=== PATIENT | male | born 1990 | race American Indian/Alaskan Native ===

== ENCOUNTER 2017-12-11 20:16 | Observation (INO) | payer BC, OTHER ==
[2017-12-11 20:16] VITALS: BMI 31.0
[2017-12-11] MEDS ORDERED: Sodium Chloride 0.9% 1,000 ML IV STA (20:36)
--- NOTE | 2017-12-11 20:41 | ED PDOC ---
"Arrival/HPI - General Chief Complaint: Abdominal Pain Time Seen by Provider: 12/11/17 20:19 Historian: Patient - History of Present Illness Narrative History of Present Illness (Text): 12/11/17 20:38 27 y/o male, pmh including appendicitis, nkda, c/o generalized abdominal pain x 2 hours with nausea/vomiting. Pt. stated that he had couple slices of pizza about 2 hours ago, quickly he has epigastric abdominal pain which radiating to the entire abdomen, took motrin and the pain increased, took magnesium milk as he think he was constipated as this instantly resulted 2 episodes of regular bowel movement, still having pain in the ER, no fever or chills, no coughing, no night sweat, no rash, no numbness or tingling, no other medical or psychological complaints. Past Medical History - Provider Review Nursing Documentation Reviewed: Yes - Past Medical History Past Medical History: No Previous - Psychiatric Hx Psychophysiologic Disorder: No Hx Substance Use: No - Past Surgical History Past Surgical History: No Previous - Surgical History Other/Comment: FINGER - Suicidal Assessment Feels Threatened In Home Enviroment: No Family/Social History - Physician Review Nursing Documentation Reviewed: Yes Family/Social History: Unknown Family HX Smoking Status: Never Smoked Hx Alcohol Use: No Hx Substance Use: No Hx Substance Use Treatment: No Allergies/Home Meds Allergies/Adverse Reactions: Allergies No Known Allergies Allergy (Verified 12/11/17 20:24) Review of Systems - Review of Systems Constitutional: absent: Fatigue, Fevers Eyes: absent: Vision Changes ENT: absent: Hearing Changes Respiratory: absent: SOB, Cough Cardiovascular: absent: Chest Pain Gastrointestinal: Abdominal Pain, Nausea, Vomiting. absent: Diarrhea Skin: absent: Rash, Pruritis Neurological: absent: Headache, Dizziness Psychiatric: absent: Anxiety, Depression, Suicidal Ideation Physical Exam Vital Signs Reviewed: Yes Vital Signs Temp Pulse Resp BP Pulse Ox 12/12/17 00:44 52 L 14 101/49 L 95 12/11/17 22:47 73 17 135/68 97 12/11/17 20:25 97.8 F 84 18 119/75 100 Temperature: Afebrile Blood Pressure: Normal Pulse: Regular Respiratory Rate: Normal Appearance: Positive for: Uncomfortable Pain Distress: Severe Mental Status: Positive for: Alert and Oriented X 3 - Systems Exam Head: Present: Atraumatic, Normocephalic Pupils: Present: PERRL Extroacular Muscles: Present: EOMI Conjunctiva: Present: Normal Ears: Present: NORMAL TM, Normal Canal. No: Erythema Mouth: Present: Moist Mucous Membranes Neck: Present: Normal Range of Motion Respiratory/Chest: Present: Clear to Auscultation, Good Air Exchange. No: Respiratory Distress, Accessory Muscle Use, Wheezes, Decreased Breath Sounds, Rales, Retracting, Rhonchi, Tachypneic, Tender to Palpation Cardiovascular: Present: Regular Rate and Rhythm, Normal S1, S2. No: Murmurs Abdomen: Present: Tenderness (epigastric and periumbilical), Normal Bowel Sounds. No: Distention, Peritoneal Signs, Rebound, Guarding, McBurney's Point Tender, Rovsing's Sign Present Back: Present: Normal Inspection. No: CVA Tenderness Upper Extremity: Present: Normal Inspection. No: Cyanosis, Edema Lower Extremity: Present: Normal Inspection. No: Edema Neurological: Present: GCS=15, Speech Normal, Motor Func Grossly Intact, Gait Normal, Memory Normal Skin: Present: Warm, Dry, Normal Color. No: Rashes Psychiatric: Present: Alert, Oriented x 3, Anxious Medical Decision Making ED Course and Treatment: 12/11/17 20:41 -labs/ua/lipase/pt/ptt -CT abdomen and pelvis -Gallbladder sonogram -IVF/zofran/pepcid -Observe and reassess 12/11/17 22:16 -Morphine 4mg IV ordered for the pain. 12/11/17 23:43 -Labs show no acute findings except wbc 11.1 (afebrile, likely pain induced) -UA show no UTI. -Gall bladder show no acute findings. -CT abdomen and pelvis show Periportal edema, nonspecific. Clinical correlation is needed. Apparent gallbladder wall thickening, not appreciated on ultrasound. Clinical correlation is needed. -Chest xray show no active disease -Abdominal pain persist, dilaudid 1mg IV ordered, still in persistent pain and screaming, pacing around, will admit for intractable abdominal pain with surgical consult and overnight observation. Differential including cholecystitis vs. gastritis vs. gastric ulcer vs. gastroenteritis. 12/11/17 23:52 -I discussed the case with Dr. Kellogg, medicine control director, discussed about the case/labs/radiology results, agreed to admit to his service with Dr. Schmidt for surgical consult as routine. -I discussed with Dr. Brown, discussed about the case/labs/radiology result, he will put in the admission. -residential sales consultant paged and notified. 12/11/17 23:59 -I spoke to the rn neurosurgical Dr. Karma Villavicencio, discussed about the case/ labs/radiology result and patient's pain level in the ER, will come to evaluate the patient. Reassessment Condition: Re-examined, Unchanged - Lab Interpretations Lab Results: 12/11/17 20:10 12/11/17 20:10 Lab Results 12/11/17 22:30: Urine Color Dark yellow, Urine Appearance Clear, Urine pH 5.5, Ur Specific [place] 1.020, Urine Protein Trace H, Urine Glucose (UA) Negative, Urine Ketones 15 H, Urine Blood Trace-intact H, Urine Nitrate Negative, Urine Bilirubin Negative, Urine Urobilinogen 0.2, Ur Leukocyte Esterase Negative, Urine RBC 2 - 5, Urine WBC 0 - 2, Ur Epithelial Cells None, Amorphous Sediment Few, Urine Bacteria Many, Urine Other Uyeast 12/11/17 21:37: Blood Type Confirm O POSITIVE 12/11/17 21:00: Blood Type O POSITIVE, Antibody Screen Negative, BBK History Checked No verified bt 12/11/17 20:10: Sodium 144, Potassium 3.6, Chloride 105, Carbon Dioxide 25, Anion Gap 18, BUN 15, Creatinine 1.4, Est GFR ( Amer) > 60, Est GFR (Non- Af Amer) > 60, Random Glucose 164 H, Calcium 9.8, Total Bilirubin 0.9, AST 59, ALT 48, Alkaline Phosphatase 67, Total Protein 7.7, Albumin 4.4, Globulin 3.3, Albumin/Globulin Ratio 1.3, Lipase 132 12/11/17 20:10: PT 13.3 H, INR 1.16 H, APTT 25.3 12/11/17 20:10: WBC 11.1 H, RBC 4.54, Hgb 13.8 L, Hct 39.8 L, MCV 87.7, MCH 30.4 , MCHC 34.7, RDW 12.6, Plt Count 204, MPV 9.3, Gran % 60.3, Lymph % (Auto) 33.5 , [place] % (Auto) 6.0, Eos % (Auto) 0.1 L, Baso % (Auto) 0.1, Gran # 6.68 H, Lymph # (Auto) 3.7 H, [place] # (Auto) 0.7 H, Eos # (Auto) 0.0, Baso # (Auto) 0.01 - RAD Interpretation Radiology Orders: 12/11/17 20:35 ABD & PELVIS IV CONTRAST ONLY [CT] Stat GALL BLADDER [US] Stat 12/11/17 21:16 CHEST ONE VIEW [RAD] Stat -Chest xray: no active disease -Gallbladder sonogram: COMPARISON: No relevant prior studies available. FINDINGS: Liver: Normal echogenicity. No mass. No intrahepatic bile duct dilatation. Gallbladder: Contracted. No gallstones. No wall thickening. No pericholecystic fluid. No sonographic Jimenez's sign. Common bile duct: No dilatation. No stones. Pancreas: Obscured by overlying bowel gas. Right kidney: Normal echogenicity. No hydronephrosis. IMPRESSION: 1. No acute findings. Thank you for allowing us to participate in the care of your patient. Dictated and Authenticated by: Blair Zultea MD 12/11/2017 10:10 PM Eastern Time (US & Gen) -CT abdomen and pelvis: FINDINGS: Lower thorax: No acute findings. ABDOMEN: Liver: Mild periportal edema. Gallbladder and bile ducts: Apparent mild gallbladder wall thickening. No calcified gallstones. No significant ductal dilation. Pancreas: No ductal dilation. No mass. Spleen: No splenomegaly. Adrenals: No mass. Kidneys and ureters: No mass. No hydronephrosis. Stomach and bowel: Segmental areas of probable underdistention of LEFT colon. No definite mural thickening. No obstruction. Appendix: Normal caliber. No inflammation. DORITA ROA | Final Radiology Report CONFIDENTIALITY STATEMENT This report is intended only for use by the referring physician, and only in accordance with law. If you received this in error, call [phone]. Page 2 of 2 PELVIS: Bladder: Small focus of fat density along anterior bladder wall, doubtful significance. Reproductive: Unremarkable as visualized. ABDOMEN and PELVIS: Intraperitoneal space: No significant fluid collection. No free air. Bones/joints: Mild curvature of spine. No acute fracture. Soft tissues: Unremarkable. 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 Lymph nodes: No pathologically enlarged lymph nodes. IMPRESSION: 1. Periportal edema, nonspecific. Clinical correlation is needed. 2. Apparent gallbladder wall thickening, not appreciated on ultrasound. Clinical correlation is needed. 3. Incidental/non-acute findings are described above. Thank you for allowing us to participate in the care of your patient. Dictated and Authenticated by: Blair Zuleta MD 12/11/2017 10:42 PM Eastern Time (US & Gen) Manager Discovery: Radiologist - Medication Orders Current Medication Orders: Discontinued Medications Acetaminophen (Tylenol 325mg Tab) 650 mg PO Q4 PRN PRN Reason: Fever >100.4 F Enoxaparin Sodium (Lovenox) 30 mg SC Q12H ABDON PRN Reason: Protocol Last Admin: 12/13/17 00:44 Dose: 30 mg Subcutaneous Administrations Document 12/13/17 00:44 MJ (Rec: 12/13/17 00:45 MJ [facility] [id number]) Injection Site MAR Injection Site Right Abdomen Charges for Administration # of Subcutaneous Administrations 1 Famotidine (Pepcid) 20 mg IVP STAT STA Stop: 12/11/17 20:36 Last Admin: 12/11/17 20:52 Dose: 20 mg IVP Administration Document 12/11/17 20:52 CNR (Rec: 12/11/17 20:52 CNR [facility] [id number]) Charges for Administration # of IVP Administrations 1 Fluconazole (Diflucan) 150 mg PO STAT STA PRN Reason: Protocol Stop: 12/11/17 23:42 Last Admin: 12/12/17 00:13 Dose: 150 mg Hydromorphone HCl (Dilaudid) 1 mg IVP STAT STA Stop: 12/11/17 23:05 Last Admin: 12/11/17 23:21 Dose: 1 mg MAR Pain Assessment Document 12/11/17 23:21 CNR (Rec: 12/11/17 23:22 CNR [facility] [id number]) Pain Reassessment Is this a pain reassessment? Yes IVP Administration Document 12/11/17 23:21 CNR (Rec: 12/11/17 23:22 CNR [facility] [id number]) Charges for Administration # of IVP Administrations 1 Sodium Chloride (Sodium Chloride 0.9%) 1,000 mls @ 999 mls/hr IV .Q1H1M STA Stop: 12/11/17 21:36 Last Admin: 12/11/17 20:50 Dose: 999 mls/hr eMAR Start Stop Document 12/11/17 20:50 CNR (Rec: 12/11/17 20:52 CNR [facility] [id number]) Intravenous Solution Start Date 12/11/17 Start Time 20:52 Lactated Ringer's (Lactated Ringer's) 1,000 mls @ 125 mls/hr IV .Q8H ABDON Stop: 12/14/17 01:01 Last Admin: 12/12/17 01:08 Dose: 125 mls/hr eMAR Start Stop Document 12/12/17 01:08 CNR (Rec: 12/12/17 01:08 CNR [facility] [id number]) Intravenous Solution Start Date 12/12/17 Start Time 01:08 Morphine Sulfate (Morphine) 4 mg IVP STAT STA Stop: 12/11/17 22:28 Last Admin: 12/11/17 22:41 Dose: 4 mg IVP Administration Document 12/11/17 22:41 CNR (Rec: 12/11/17 22:43 CNR [facility] [id number]) Charges for Administration # of IVP Administrations 1 Morphine Sulfate (Morphine) 2 mg IVP Q4H PRN PRN Reason: Pain, severe (8-10) Morphine Sulfate (Morphine) 2 mg IVP Q4H PRN PRN Reason: Pain, severe (8-10) Nitrofurantoin Macrocrystals (Macrobid) 100 mg PO Q12 ABDON Last Admin: 12/13/17 09:00 Dose: 100 mg Ondansetron HCl (Zofran Inj) 4 mg IVP STAT STA Stop: 12/11/17 20:36 Last Admin: 12/11/17 20:52 Dose: 4 mg IVP Administration Document 12/11/17 20:52 CNR (Rec: 12/11/17 20:52 CNR [facility] [id number]) Charges for Administration # of IVP Administrations 1 Ondansetron HCl (Zofran Inj) 4 mg IVP Q6H PRN PRN Reason: Nausea/Vomiting Pantoprazole Sodium (Protonix Inj) 40 mg IVP Q12 [facility] Last Admin: 12/12/17 21:43 Dose: 40 mg IVP Administration Document 12/12/17 21:43 MJ (Rec: 12/12/17 21:43 MJ [facility] [id number]) Charges for Administration # of IVP Administrations 1 Pantoprazole Sodium (Protonix Ec Tab) 40 mg PO Q12 [facility] [place] / OUTBOUND SUPERVISOR / Resident Statement MD/DO has reviewed & agrees with the documentation as recorded. Disposition/Present on Arrival - Present on Arrival Any Indicators Present on Arrival: No History of DVT/PE: No History of Uncontrolled Diabetes: No Urinary Catheter: No History of Decub. Ulcer: No History Surgical Site Infection Following: None - Disposition Have Diagnosis and Disposition been Completed?: Yes Diagnosis: Intractable abdominal pain, Thickening of wall of gallbladder Disposition: HOSPITALIZED Disposition Time: 23:05 Patient Plan: Admission, Observation Condition: FAIR"
[2017-12-11 20:53] LABS: BASO # 0.01 K/mm3 (0.0-2.0); BASO % 0.1 % (0.0-3.0); EOS % 0.1 % (1.5-5.0); GRAN # 6.68 (1.4-6.5); GRAN % 60.3 % (50.0-68.0); HEMOGLOBIN 13.8 g/dL (14.0-18.0); LYMPH # 3.7 (1.2-3.4); LYMPH % 33.5 % (22.0-35.0); MEAN CELL VOLUME 87.7 fl (80.0-105.0); MEAN CORPUSCULAR HEMOGLOBIN 30.4 pg (25.0-35.0); MEAN CORPUSCULAR HGB CONC 34.7 g/dl (31.0-37.0); MEAN PLATELET VOLUME 9.3 fl (7.0-11.0); MONO # 0.7 (0.1-0.6); RBC 4.54 10^6/uL (3.5-6.1); RED CELL DISTRIBUTION WIDTH 12.6 % (11.5-14.5); WHITE BLOOD COUNT 11.1 10^3/ul (4.5-11.0)
[2017-12-11 21:02] LABS: ALB/GLOB RATIO 1.3 (1.1-1.8); ALBUMIN 4.4 g/dL (3.0-4.8); ALT/SGPT 48 U/L (7-56); AST/SGOT 59 U/L (17-59); BLOOD UREA NITROGEN 15 mg/dL (7-21); CALCIUM 9.8 mg/dL (8.4-10.5); GFR AFRICAN-AMERICAN > 60; GFR NON-AFRICAN AMERICAN > 60; LIPASE 132 U/L (23-300)
[2017-12-11 21:24] LABS: INR 1.16 (0.93-1.08); PARTIAL THROMBOPLASTIN TIME 25.3 Seconds (25.1-36.5); PROTHROMBIN TIME 13.3 SECONDS (9.4-12.5)
[2017-12-11] MEDS ORDERED: Iohexol 350 MG/100 ML VIAL ONE (22:08)
--- NOTE | 2017-12-11 22:10 | US ---
EXAM: US Abdomen Limited, Right Upper Quadrant CLINICAL HISTORY: 27 years old, male; Pain; Abdominal pain; Generalized; Additional info: R/O cholecystitis TECHNIQUE: Real-time ultrasound of the right upper quadrant with image documentation. COMPARISON: No relevant prior studies available. FINDINGS: Liver: Normal echogenicity. No mass. No intrahepatic bile duct dilatation. Gallbladder: Contracted. No gallstones. No wall thickening. No pericholecystic fluid. No sonographic Jimenez's sign. Common bile duct: No dilatation. No stones. Pancreas: Obscured by overlying bowel gas. Right kidney: Normal echogenicity. No hydronephrosis. IMPRESSION: 1.No acute findings.
[2017-12-11] MEDS ORDERED: Morphine 4 mg/ml ISec IVP STA (22:15)
[2017-12-11] MEDS ORDERED: Morphine 5 MG/ML SYRINGE IVP STA (22:27)
--- NOTE | 2017-12-11 22:42 | CT ---
EXAM: CT Abdomen and Pelvis With Intravenous Contrast CLINICAL HISTORY: 27 years old, male; Pain; Abdominal pain; Acute; Additional info: Generalized abominal pain x 2 hours TECHNIQUE: Axial computed tomography images of the abdomen and pelvis with intravenous contrast. All CT scans at this facility use one or more dose reduction techniques, viz.: automated exposure control; ma/kV adjustment per patient size (including targeted exams where dose is matched to indication; i.e. head); or iterative reconstruction technique. Coronal and sagittal reformatted images were created and reviewed. CONTRAST: 100 mL of OMNI 350 administered intravenously. COMPARISON: US - GALL BLADDER 2017-12-11 21:49 FINDINGS: Lower thorax: No acute findings. ABDOMEN: Liver: Mild periportal edema. Gallbladder and bile ducts: Apparent mild gallbladder wall thickening. No calcified gallstones. No significant ductal dilation. Pancreas: No ductal dilation. No mass. Spleen: No splenomegaly. Adrenals: No mass. Kidneys and ureters: No mass. No hydronephrosis. Stomach and bowel: Segmental areas of probable underdistention of LEFT colon. No definite mural thickening. No obstruction. Appendix: Normal caliber. No inflammation. PELVIS: Bladder: Small focus of fat density along anterior bladder wall, doubtful significance. Reproductive: Unremarkable as visualized. ABDOMEN and PELVIS: Intraperitoneal space: No significant fluid collection. No free air. Bones/joints: Mild curvature of spine. No acute fracture. Soft tissues: Unremarkable. 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 Lymph nodes: No pathologically enlarged lymph nodes. IMPRESSION: 1. Periportal edema, nonspecific. Clinical correlation is needed. 2. Apparent gallbladder wall thickening, not appreciated on ultrasound. Clinical correlation is needed. 3. Incidental/non-acute findings are described above.
[2017-12-11 22:51] LABS: PH,URINE 5.5 (4.7-8.0); URINE BILIRUBIN NEGATIVE (NEGATIVE); URINE BLOOD TRACE-INTACT (NEGATIVE); URINE GLUCOSE (UA) NEGATIVE (NEGATIVE); URINE LEUKOCYTE ESTERASE NEGATIVE Leu/uL (NEGATIVE); URINE NITRATE NEGATIVE (NEGATIVE); URINE PROTEIN TRACE mg/dL (<30 mg/dL); URINE UROBILINOGEN 0.2 E.U./dL (<1 E.U./dL)
[2017-12-11 22:53] LABS: URINE APPEARANCE CLEAR (CLEAR); URINE COLOR DARK YELLOW (YELLOW)
[2017-12-11 23:06] LABS: URINE AMORPHOUS SEDIMENT FEW; URINE BACTERIA MANY (NEG); URINE WBC 0 - 2 /hpf (0-6)
[2017-12-12] MEDS ORDERED: Sodium Chloride 0.9% 1,000 ML IV SCH
[2017-12-12] MEDS ORDERED: Morphine 5 MG/ML SYRINGE IVP PRN (00:50)
--- NOTE | 2017-12-12 00:59 | CP.PCM.CON ---
History of Present Illness - History of Present Illness History of Present Illness: Patient is a 27 M with no significant PMH of PSH who presented to [facility] ER after having severe abdominal pain a few hours in duration. Patient stated pain began around 7PM after eating pizza. Pain was epigastric in nature and then spread in a la posta around his abdomen. Patient reported nausea associated with pain but no vomiting. Had a regular solid BM the day of the onset but had 2 episode of diarrhea just prior to the pain. Patient denies any prior occurrence, difficulty urinating, hematuria, dysuria, melena, hematochezia, pain radiating to his back, CP, SOB, or any other symptoms. Denies pain during examination after receiving 1 mg of dilaudid and pepcid. Review of Systems - Review of Systems All systems: reviewed and no additional remarkable complaints except - Constitutional Constitutional: Excessive Sweating. absent: Chills, Fever - Cardiovascular Cardiovascular: As Per HPI - Respiratory Respiratory: As Per HPI. absent: Cough, Dyspnea - Gastrointestinal Gastrointestinal: As Per HPI - Genitourinary Genitourinary: As Per HPI - Musculoskeletal Musculoskeletal: As Per HPI - Neurological Neurological: As Per HPI Past Patient History - Past Medical History & Family History Past Medical History?: Yes - Past Social History Smoking Status: Never Smoked Alcohol: Occasional Drugs: Denies - PSYCHIATRIC Hx Psychophysiologic Disorder: No Hx Substance Use: No - SURGICAL HISTORY Other/Comment: FINGER Meds Allergies/Adverse Reactions: Allergies Allergy/AdvReac Type Severity Reaction Status Date / Time No Known Allergies Allergy Verified 12/11/17 20:24 - Medications Medications: Current Medications Acetaminophen (Tylenol 325mg Tab) 650 mg PO Q4 PRN PRN Reason: Fever >100.4 F Enoxaparin Sodium (Lovenox) 30 mg SC Q12H ABDON PRN Reason: Protocol Lactated Ringer's (Lactated Ringer's) 1,000 mls @ 125 mls/hr IV .Q8H [facility] Stop: 12/14/17 01:01 Morphine Sulfate (Morphine) 2 mg IVP Q4H PRN PRN Reason: Pain, severe (8-10) Ondansetron HCl (Zofran Inj) 4 mg IVP Q6H PRN PRN Reason: Nausea/Vomiting Physical Exam - Constitutional Appears: Well, Non-toxic, No Acute Distress - Eye Exam Eye Exam: EOMI, Normal appearance - ENT Exam ENT Exam: Mucous Membranes Moist, Normal Oropharynx - Respiratory Exam Respiratory Exam: NORMAL BREATHING PATTERN. absent: Accessory Muscle Use, Respiratory Distress - Cardiovascular Exam Cardiovascular Exam: RRR - GI/Abdominal Exam GI & Abdominal Exam: Soft, Tenderness (mild LUQ tenderness). absent: Distended , Rebound Additional comments: negative morse's sign, no tenderness at McBurney's point, negative Rovsing's sign - Extremities Exam Extremities exam: Positive for: pedal pulses present. Negative for: calf tenderness, pedal edema - Back Exam Back exam: absent: CVA tenderness (L), CVA tenderness (R) - Neurological Exam Neurological exam: Altered (lethargic D/T pain medication), Oriented x3 - Psychiatric Exam Psychiatric exam: Normal Affect, Normal Mood - Skin Skin Exam: Normal Color, Warm Additional comments: sweating Results - Vital Signs Recent Vital Signs: Last Vital Signs Temp 97.8 F 12/11/17 20:25 Pulse 52 L 12/12/17 00:44 Resp 14 12/12/17 00:44 BP 101/49 L 12/12/17 00:44 Pulse Ox 95 12/12/17 00:44 - Labs Result Diagrams: 12/11/17 20:10 12/11/17 20:10 Labs: Laboratory Results - last 24 hr 12/11/17 12/11/17 12/11/17 20:10 20:10 20:10 WBC 11.1 H RBC 4.54 Hgb 13.8 L Hct 39.8 L MCV 87.7 MCH 30.4 MCHC 34.7 RDW 12.6 Plt Count 204 MPV 9.3 Gran % 60.3 Lymph % (Auto) 33.5 [place] % (Auto) 6.0 Eos % (Auto) 0.1 L Baso % (Auto) 0.1 Gran # 6.68 H Lymph # (Auto) 3.7 H [place] # (Auto) 0.7 H Eos # (Auto) 0.0 Baso # (Auto) 0.01 PT 13.3 H INR 1.16 H APTT 25.3 Sodium 144 Potassium 3.6 Chloride 105 Carbon Dioxide 25 Anion Gap 18 BUN 15 Creatinine 1.4 Est GFR ( Amer) > 60 Est GFR (Non-Af Amer) > 60 Random Glucose 164 H Calcium 9.8 Total Bilirubin 0.9 AST 59 ALT 48 Alkaline Phosphatase 67 Total Protein 7.7 Albumin 4.4 Globulin 3.3 Albumin/Globulin Ratio 1.3 Lipase 132 Urine Color Urine Appearance Urine pH Ur Specific [place] Urine Protein Urine Glucose (UA) Urine Ketones Urine Blood Urine Nitrate Urine Bilirubin Urine Urobilinogen Ur Leukocyte Esterase Urine RBC Urine WBC Ur Epithelial Cells Amorphous Sediment Urine Bacteria Urine Other Blood Type Blood Type Confirm Antibody Screen BBK History Checked 12/11/17 12/11/17 12/11/17 21:00 21:37 22:30 WBC RBC Hgb Hct MCV MCH MCHC RDW Plt Count MPV Gran % Lymph % (Auto) [place] % (Auto) Eos % (Auto) Baso % (Auto) Gran # Lymph # (Auto) [place] # (Auto) Eos # (Auto) Baso # (Auto) PT INR APTT Sodium Potassium Chloride Carbon Dioxide Anion Gap BUN Creatinine Est GFR ( Amer) Est GFR (Non-Af Amer) Random Glucose Calcium Total Bilirubin AST ALT Alkaline Phosphatase Total Protein Albumin Globulin Albumin/Globulin Ratio Lipase Urine Color Dark yellow Urine Appearance Clear Urine pH 5.5 Ur Specific [place] 1.020 Urine Protein Trace H Urine Glucose (UA) Negative Urine Ketones 15 H Urine Blood Trace-intact H Urine Nitrate Negative Urine Bilirubin Negative Urine Urobilinogen 0.2 Ur Leukocyte Esterase Negative Urine RBC 2 - 5 Urine WBC 0 - 2 Ur Epithelial Cells None Amorphous Sediment Few Urine Bacteria Many Urine Other Uyeast Blood Type O POSITIVE Blood Type Confirm O POSITIVE Antibody Screen Negative BBK History Checked No verified bt - Imaging and Cardiology CT scan - abdomen Status: Image reviewed by me, Report reviewed by me Additional comment: contracted gallbladder, possible inflammation of the left transverse colon, appendix normal US - abdomen Status: Image reviewed by me, Report reviewed by me Additional comment: no wall thickening, no pericholecystic fluid, no stones, cbd WNL Assessment & Plan - Assessment and Plan (Free Text) Assessment: 27M complaining of diffuse abdominal pain worst in the epigastrium: R/U cholecystitis vs. gastroenteritis Plan: Re-examine abdominal exam in the morning AM CBC, CMP NPO IVF PRN pain and nausea medication Protonix No indication for surgical intervention at this time Will discuss with Dr. Schmidt, further recs per him Karma Villavicencio, PGY2
[2017-12-12] MEDS ORDERED: Lactated Ringer's 1,000 ML IV SCH (01:00)
[2017-12-12] MEDS: Enoxaparin 30 mg Syringe SC SCH ×2 (01:54→12:44)
[2017-12-12 07:34] LABS: BASO # 0.01 K/mm3 (0.0-2.0); BASO % 0.1 % (0.0-3.0); EOS % 0.1 % (1.5-5.0); GRAN # 4.73 (1.4-6.5); GRAN % 63.3 % (50.0-68.0); HEMOGLOBIN 13.1 g/dL (14.0-18.0); LYMPH # 2.4 (1.2-3.4); LYMPH % 32.4 % (22.0-35.0); MEAN CELL VOLUME 88.9 fl (80.0-105.0); MEAN CORPUSCULAR HEMOGLOBIN 30.4 pg (25.0-35.0); MEAN CORPUSCULAR HGB CONC 34.2 g/dl (31.0-37.0); MEAN PLATELET VOLUME 9.4 fl (7.0-11.0); MONO # 0.3 (0.1-0.6); MONO % 4.1 % (1.0-6.0); RBC 4.31 10^6/uL (3.5-6.1); RED CELL DISTRIBUTION WIDTH 12.8 % (11.5-14.5); WHITE BLOOD COUNT 7.5 10^3/ul (4.5-11.0)
[2017-12-12 07:46] LABS: ALB/GLOB RATIO 1.2 (1.1-1.8); ALT/SGPT 149 U/L (7-56); AST/SGOT 141 U/L (17-59); BLOOD UREA NITROGEN 12 mg/dL (7-21); CALCIUM 9.5 mg/dL (8.4-10.5); GFR AFRICAN-AMERICAN > 60; GFR NON-AFRICAN AMERICAN > 60; MAGNESIUM 2.5 mg/dL (1.7-2.2)
[2017-12-12 07:58] VITALS: RESP 20
--- NOTE | 2017-12-12 09:10 | CP.PCM.PN ---
Subjective - Date & Time of Evaluation Date of Evaluation: 12/12/17 Time of Evaluation: 09:07 - Subjective Subjective: GENERAL SURGERY CONSULT PROGRESS NOTE FOR DR. SHEIKH. Patient has been seen and examined. No overnight events reported. Denies any fevers, chills, nausea, vomiting, or abdominal pain. Objective - Vital Signs/Intake and Output Vital Signs (last 24 hours): Temp Pulse Resp BP Pulse Ox 98.1 F 51 L 20 107/57 L 97 12/12/17 06:00 12/12/17 06:00 12/12/17 06:00 12/12/17 06:00 12/12/17 06:00 - Medications Medications: Current Medications Acetaminophen (Tylenol 325mg Tab) 650 mg PO Q4 PRN PRN Reason: Fever >100.4 F Enoxaparin Sodium (Lovenox) 30 mg SC Q12H ABDON PRN Reason: Protocol Last Admin: 12/12/17 01:54 Dose: 30 mg Lactated Ringer's (Lactated Ringer's) 1,000 mls @ 125 mls/hr IV .Q8H [facility] Stop: 12/14/17 01:01 Last Admin: 12/12/17 01:08 Dose: 125 mls/hr Morphine Sulfate (Morphine) 2 mg IVP Q4H PRN PRN Reason: Pain, severe (8-10) Ondansetron HCl (Zofran Inj) 4 mg IVP Q6H PRN PRN Reason: Nausea/Vomiting Pantoprazole Sodium (Protonix Inj) 40 mg IVP Q12 ABDON - Labs Labs: 12/12/17 06:40 12/12/17 06:40 PT 13.3 SECONDS (9.4-12.5) H 12/11/17 20:10 INR 1.16 (0.93-1.08) H 12/11/17 20:10 APTT 25.3 Seconds (25.1-36.5) 12/11/17 20:10 - Constitutional Appears: Well, Non-toxic, No Acute Distress - Head Exam Head Exam: ATRAUMATIC, NORMAL INSPECTION, NORMOCEPHALIC - Eye Exam Eye Exam: EOMI, Normal appearance - ENT Exam ENT Exam: Mucous Membranes Moist - Respiratory Exam Respiratory Exam: NORMAL BREATHING PATTERN. absent: Accessory Muscle Use - Cardiovascular Exam Cardiovascular Exam: +S1, +S2 - GI/Abdominal Exam GI & Abdominal Exam: Soft. absent: Distended, Firm, Guarding, Rigid, Tenderness , Normal Bowel Sounds, Organomegaly, Rebound Additional comments: negative morse's sign, no tenderness at McBurney's point, negative Rovsing's sign - Extremities Exam Extremities Exam: absent: Pedal Edema - Neurological Exam Neurological Exam: Alert, Awake, Oriented x3 - Psychiatric Exam Psychiatric exam: Normal Affect, Normal Mood - Skin Skin Exam: Dry, Intact, Normal Color, Warm Assessment and Plan - Assessment and Plan (Free Text) Assessment: 27M complaining of diffuse abdominal pain worst in the epigastrium: R/O cholecystitis (Unlikely) vs. gastroenteritis vs colitis. Abd/Pelvis CT - Noted Gallbladder US - No Acute Findings. Benign Abdominal Exam. VSS, Afebrile, No Leukocytosis Elevated Liver Enzymes Plan: Start Liquid Diet Advance Diet as tolerated Trend Liver Enzymes No surgical intervention warranted at this time. Please contact us with any questions are concerns. Discussed with Dr. Brayan Hernandez, PGY1
--- NOTE | 2017-12-12 09:53 | RAD ---
PROCEDURE: CHEST RADIOGRAPH, 1 VIEW HISTORY: medical clearance COMPARISON: None available. FINDINGS: LUNGS: Clear. PLEURA: No pneumothorax or pleural fluid seen. CARDIOVASCULAR: Normal. OSSEOUS STRUCTURES: No significant abnormalities. VISUALIZED UPPER ABDOMEN: Normal. OTHER FINDINGS: None. IMPRESSION: No active disease.
[2017-12-12] MEDS ORDERED: Morphine 2 mg/ml ISec IVP PRN (17:42)
[2017-12-12 19:14] LABS: HEPATITIS B SURFACE AG Negative (NEGATIVE)
[2017-12-12 19:20] LABS: HEPATITIS A IGM NEGATIVE (NEGATIVE); HEPATITIS B CORE AB NEGATIVE (NEGATIVE)
[2017-12-12 19:31] LABS: HEPATITIS C ANTIBODY NEGATIVE (NEGATIVE)
--- NOTE | 2017-12-12 22:51 | HP ---
HISTORY OF PRESENT ILLNESS: I saw him resting comfortably in bed this morning. He did not sleep well last night. He had some diarrhea this morning. He is a 27-year-old man who is having 2 hours of severe nausea, vomiting and abdominal pain after eating pizza. He had very severe abdominal pain, never had that before. He took some Motrin and milk of magnesia and came to the emergency room. He did have some bowel movements this morning which were diarrhea. He is asking for ice chips and just overall not doing well. PAST MEDICAL HISTORY: He has no previous medical history. PAST SURGICAL HISTORY: No surgical history. SOCIAL HISTORY: No smoking. No drinking. No drugs. FAMILY HISTORY: No family history. ALLERGIES: NO KNOWN DRUG ALLERGIES. MEDICATIONS: No medicines at home that he takes besides what was mentioned above [id number]. REVIEW OF SYSTEMS: No vision changes. No hearing changes. No shortness of breath. No cough. No chest pain or palpitations. He is having abdominal pain, nausea and vomiting. He had some diarrhea this morning. No skin issues, no ulcers or rashes. No headache or dizziness. No anxiety. No depression. PHYSICAL EXAMINATION: VITAL SIGNS: He has a 98.2 temperature, 60 pulse, 14 respiratory rate, 101/49 blood pressure and 96% O2 sat on room air. GENERAL: He has mild discomfort in the abdomen at this time. HEENT: Head is atraumatic and normocephalic. Alert and oriented x3. Pupils equal, round and reactive to light and accommodation. Extraocular muscles are intact. Throat is moist. NECK: Supple. HEART: Regular rate. Normal S1 and S2. LUNGS: Decreased breath sounds, clear to auscultation. No wheezes, rhonchi or rales. ABDOMEN: At this time, mild upper epigastric tenderness, but soft positive bowel sounds. Faint, but soft. No guarding. No rebound. EXTREMITIES: No edema. NEUROLOGIC: GCS is 15. Cranial nerves II through XII grossly intact. Alert and oriented x3. SKIN: Warm and dry. No apparent rashes or ulcers. LABORATORY DATA: He has a 144 sodium, potassium 4.2, BUN 12, creatinine 1.1, GFR is greater than 60, sugar is 110, calcium is 9.5, phosphorus is 4.4, magnesium 2.5. Total bilirubin is 1.1, AST is 141, ALT is 149, they went up from when he came in; alkaline phosphatase is 64, total protein is 7.2, lipase is 132. INR is 1.16. White count is down to 7.5. It was 11.1 when he came, 13.1 hemoglobin, 38.3 hematocrit, 194 platelets. IMPRESSION AND PLAN: He had a CAT scan of the abdomen and pelvis, which was periportal edema, apparent gallbladder wall thickening. Ultrasound showed no acute findings. I will increase his diet to clears. We will se how he does. I called GI to look at his liver enzymes which are elevated, but he is taking ice chips and did move his bowels with diarrhea and he does have bowel sounds and his belly his soft. We will see how he does have clear fluids. If we can do well today, possibly discharge home. I will discuss this with GI. I understand that there is no surgical intervention at this time. He is her for severe abdominal pain. Sam Kellogg DO MTDGuilherme
[2017-12-13] MEDS: Enoxaparin 30 mg Syringe SC SCH (00:44)
[2017-12-13 01:15] VITALS: O2SAT 99
[2017-12-13 07:15] LABS: HEMOGLOBIN 12.8 g/dL (14.0-18.0); MEAN CELL VOLUME 89.9 fl (80.0-105.0); MEAN CORPUSCULAR HEMOGLOBIN 30.1 pg (25.0-35.0); MEAN CORPUSCULAR HGB CONC 33.5 g/dl (31.0-37.0); MEAN PLATELET VOLUME 9.7 fl (7.0-11.0); RBC 4.25 10^6/uL (3.5-6.1); WHITE BLOOD COUNT 3.9 10^3/ul (4.5-11.0)
--- NOTE | 2017-12-13 07:20 | CP.PCM.CON ---
History of Present Illness - History of Present Illness History of Present Illness: Initial PGY4 GI Consult note Eliz is a 27M w/ no sig med hx who presented to the ER with abdominal pain. Pt states that it started insidiously after eating pizza post soccer game the night prior. He states that the pain was 10 out of 10 and located in the RUQ and epigastric area, but non-radiating. He tried taking milk of Mg, but no improvement in symptoms. He states that he had experienced a one time episode of stool BM after Milk of MG without blood or mucus. He then proceeded to the ER for further eval. Pt CT w/ IV contrast revealed mild GB walling thickening, but no stones. Abd u/s was normal; no cbd dilatation, no mass, and no acute findings. GI was consulted for elevated LFTs. He denies previous liver problems. States that he had an episode of juandice as a child. Seldom consumes alcohol. Denies herbals or wild mushroom consumption. He does admit to intermittent acetamenophen use. Denies any weight loss, fever, chills or diaphoresis. Snow BM without blood or melena. PMHx: None PSHx: finger amputation repair Social hx Denies smoking and illicit drug, drink 1-2 ties a year Family hx: denies and contributing hx Endo hx denies ROS: other than whats mentioned above, otherwise neg Past Patient History - Past Medical History & Family History Past Medical History?: Yes - Past Social History Smoking Status: Never Smoked - MUSCULOSKELETAL/RHEUMATOLOGICAL Hx Falls: No - PSYCHIATRIC Hx Psychophysiologic Disorder: No Hx Substance Use: No - SURGICAL HISTORY Other/Comment: FINGER Meds Allergies/Adverse Reactions: Allergies Allergy/AdvReac Type Severity Reaction Status Date / Time No Known Allergies Allergy Verified 12/11/17 20:24 - Medications Medications: Current Medications Acetaminophen (Tylenol 325mg Tab) 650 mg PO Q4 PRN PRN Reason: Fever >100.4 F Enoxaparin Sodium (Lovenox) 30 mg SC Q12H ABDON PRN Reason: Protocol Last Admin: 12/13/17 00:44 Dose: 30 mg Morphine Sulfate (Morphine) 2 mg IVP Q4H PRN PRN Reason: Pain, severe (8-10) Ondansetron HCl (Zofran Inj) 4 mg IVP Q6H PRN PRN Reason: Nausea/Vomiting Pantoprazole Sodium (Protonix Inj) 40 mg IVP Q12 ABDON Last Admin: 12/12/17 21:43 Dose: 40 mg Physical Exam - Constitutional Appears: Well, No Acute Distress - Head Exam Head Exam: ATRAUMATIC, NORMOCEPHALIC - Eye Exam Eye Exam: Normal appearance - ENT Exam ENT Exam: Mucous Membranes Moist - Respiratory Exam Respiratory Exam: Clear to Auscultation Bilateral, NORMAL BREATHING PATTERN. absent: Rales, Rhonchi, Wheezes, Respiratory Distress - Cardiovascular Exam Cardiovascular Exam: REGULAR RHYTHM, +S1 - GI/Abdominal Exam GI & Abdominal Exam: Normal Bowel Sounds, Soft. absent: Organomegaly, Rigid, Tenderness - Extremities Exam Extremities exam: Negative for: joint swelling, pedal edema - Neurological Exam Neurological exam: Alert, Oriented x3 - Skin Skin Exam: Dry, Intact, Normal Color, Warm Results - Vital Signs Recent Vital Signs: Last Vital Signs Temp 97.3 F L 12/13/17 00:00 Pulse 59 L 12/13/17 00:00 Resp 20 12/13/17 00:00 BP 128/81 12/13/17 00:00 Pulse Ox 99 12/13/17 00:00 - Labs Result Diagrams: 12/12/17 06:40 12/12/17 06:40 Labs: Laboratory Results - last 24 hr 12/12/17 12/12/17 12/12/17 06:40 06:40 10:06 WBC 7.5 D RBC 4.31 Hgb 13.1 L Hct 38.3 L MCV 88.9 MCH 30.4 MCHC 34.2 RDW 12.8 Plt Count 194 MPV 9.4 Gran % 63.3 Lymph % (Auto) 32.4 [place] % (Auto) 4.1 Eos % (Auto) 0.1 L Baso % (Auto) 0.1 Gran # 4.73 Lymph # (Auto) 2.4 [place] # (Auto) 0.3 Eos # (Auto) 0.0 Baso # (Auto) 0.01 Sodium 144 Potassium 4.2 Chloride 107 Carbon Dioxide 26 Anion Gap 15 BUN 12 Creatinine 1.1 Est GFR ( Amer) > 60 Est GFR (Non-Af Amer) > 60 Random Glucose 110 Calcium 9.5 Phosphorus 4.4 Magnesium 2.5 H Total Bilirubin 1.1 AST 141 H D ALT 149 H Alkaline Phosphatase 64 Total Protein 7.2 Albumin 4.0 Globulin 3.2 Albumin/Globulin Ratio 1.2 IgG Hepatitis A IgM Ab Negative Hepatitis A Ab Total Antibody pos Hep Bs Antigen Negative Hep Bs Antibody Hep B Core IgM Ab Negative Hepatitis C Antibody Negative 12/12/17 12/12/17 10:06 Unknown WBC RBC Hgb Hct MCV MCH MCHC RDW Plt Count MPV Gran % Lymph % (Auto) [place] % (Auto) Eos % (Auto) Baso % (Auto) Gran # Lymph # (Auto) [place] # (Auto) Eos # (Auto) Baso # (Auto) Sodium Potassium Chloride Carbon Dioxide Anion Gap BUN Creatinine Est GFR ( Amer) Est GFR (Non-Af Amer) Random Glucose Calcium Phosphorus Magnesium Total Bilirubin AST ALT Alkaline Phosphatase Total Protein Albumin Globulin Albumin/Globulin Ratio IgG 1262.8 Hepatitis A IgM Ab Hepatitis A Ab Total Hep Bs Antigen Hep Bs Antibody Negative Hep B Core IgM Ab Hepatitis C Antibody Assessment & Plan - Assessment and Plan (Free Text) Assessment: Eliz is a 27M w/ no significant medical hx who presents to the ED with abd pain. He abd pain has resolved but has an incidental rise in LFTs Abd pain, DDx: gastroenteritis vs early cholecystitis Elevated LFTs: Early cholecystits; hep viral serolgies neg, waiting on complete autoimmune Plan: -abd pain resolved -tolerating diet -trend LFTs -if downtrending, okay to d/c from GI standpoint -surgery recommendations noted -will need follow-up LFTs in 2 weeks -need to establish PCP -avoid alcohol use -reviewed CT and U/S Will D/W Dr. Arreaga
[2017-12-13 08:00] LABS: ALB/GLOB RATIO 1.2 (1.1-1.8); ALBUMIN 3.8 g/dL (3.0-4.8); ALT/SGPT 106 U/L (7-56); AST/SGOT 59 U/L (17-59); BLOOD UREA NITROGEN 8 mg/dL (7-21); CALCIUM 9.3 mg/dL (8.4-10.5); GFR AFRICAN-AMERICAN > 60; GFR NON-AFRICAN AMERICAN > 60
[2017-12-13 08:02] VITALS: BP 100/42; PULSE 56; TEMP 97.4
--- NOTE | 2017-12-13 09:11 | CP.PCM.PN ---
"Subjective - Date & Time of Evaluation Date of Evaluation: 12/13/17 Time of Evaluation: 09:06 - Subjective Subjective: GENERAL SURGERY CONSULT PROGRESS NOTE FOR DR. SHEIKH. Patient has been seen and examined. No overnight events reported. Denies any fevers, chills, nausea, vomiting, constipation or abdominal pain. Has had soft bowel movements and flatus. Tolerated regular diet. Objective - Vital Signs/Intake and Output Vital Signs (last 24 hours): Temp Pulse Resp BP Pulse Ox 97.4 F L 56 L 20 100/42 L 99 12/13/17 06:00 12/13/17 06:00 12/13/17 06:00 12/13/17 06:00 12/13/17 06:00 - Medications Medications: Current Medications Acetaminophen (Tylenol 325mg Tab) 650 mg PO Q4 PRN PRN Reason: Fever >100.4 F Enoxaparin Sodium (Lovenox) 30 mg SC Q12H ABDON PRN Reason: Protocol Last Admin: 12/13/17 00:44 Dose: 30 mg Morphine Sulfate (Morphine) 2 mg IVP Q4H PRN PRN Reason: Pain, severe (8-10) Nitrofurantoin Macrocrystals (Macrobid) 100 mg PO Q12 [facility] Last Admin: 12/13/17 09:00 Dose: 100 mg Ondansetron HCl (Zofran Inj) 4 mg IVP Q6H PRN PRN Reason: Nausea/Vomiting Pantoprazole Sodium (Protonix Inj) 40 mg IVP Q12 [facility] Last Admin: 12/12/17 21:43 Dose: 40 mg - Labs Labs: 12/13/17 06:30 12/13/17 06:30 PT 13.3 SECONDS (9.4-12.5) H 12/11/17 20:10 INR 1.16 (0.93-1.08) H 12/11/17 20:10 APTT 25.3 Seconds (25.1-36.5) 12/11/17 20:10 - Additional Findings Additional findings: - Constitutional Appears: Well, Non-toxic, No Acute Distress - Head Exam Head Exam: ATRAUMATIC, NORMAL INSPECTION, NORMOCEPHALIC - Eye Exam Eye Exam: EOMI, Normal appearance - ENT Exam ENT Exam: Mucous Membranes Moist - Respiratory Exam Respiratory Exam: NORMAL BREATHING PATTERN. absent: Accessory Muscle Use - Cardiovascular Exam Cardiovascular Exam: +S1, +S2 - GI/Abdominal Exam GI & Abdominal Exam: Soft. absent: Distended, Firm, Guarding, Rigid, Tenderness , Normal Bowel Sounds, Organomegaly, Rebound Additional comments: negative morse's sign, no tenderness at McBurney's point, negative Rovsing's sign - Extremities Exam Extremities Exam: absent: Pedal Edema - Neurological Exam Neurological Exam: Alert, Awake, Oriented x3 - Psychiatric Exam Psychiatric exam: Normal Affect, Normal Mood - Skin Skin Exam: Dry, Intact, Normal Color, Warm Assessment and Plan - Assessment and Plan (Free Text) Assessment: 27M complained of diffuse abdominal pain worst in the epigastrium: R/O cholecystitis (Unlikely) vs. gastroenteritis vs colitis. Abd/Pelvis CT - Noted Gallbladder US - No Acute Findings. Benign Abdominal Exam. VSS, Afebrile, No Leukocytosis Liver Enzymes are downtrending. Hepatitis Panel: NEGATIVE | Hep A Ab: POSITIVE Plan: Patient cleared for discharge on a surgical standpoint. No surgical intervention warranted at this time. Please contact us with any questions are concerns. Patient should establish care with PCP Further Recs as per Dr. Brayan Hernandez, PGY1"
--- NOTE | 2017-12-13 13:29 | PN ---
DATE: The patient is seen, there is nothing remarkable. Pain has resolved. The abdomen is soft and nontender. White count is 3.9. SMA-18, had a normal bilirubin. The were up a little bit yesterday, but they have come down. ALT just a little bit above normal, which can be followed up routinely as an outpatient. Diagnosis would be gastroenteritis. Fer Schmidt MD
[2017-12-13] MEDS ORDERED: Pantoprazole 40 mg EC Tab PO SCH (22:00)
--- NOTE | 2017-12-14 08:33 | DS ---
SUBJECTIVE: He was seen by GI and by Surgery. He was watched overnight because he had severe abdominal pain and today, he is doing much better this morning, also elevated liver enzymes. This morning when I see him in bed, he is sitting up, he ate his breakfast, he is very comfortable. No abdominal pain. LFTs have been high. Also this morning, we got the urinalysis back, it was positive for UTI. I will put him on Macrodantin. He is tolerating the diet. Abdominal pain is resolved. We are going to have him follow up with his primary care doctor. PHYSICAL EXAMINATION: VITAL SIGNS: He has a 97.4 temperature, 56 pulse, 100/42 blood pressure, 20 respiratory rate, and 99% O2 saturation on room air. HEENT: Head is atraumatic and normocephalic. HEART: Regular rate. LUNGS: Clear to auscultation. ABDOMEN: Soft. Positive bowel sounds. No guarding, no rebound. No CVA tenderness. No pain at all in the body. EXTREMITIES: No edema. MEDICATIONS: He was on Lovenox, morphine, Protonix, Tylenol, and Zofran. He will go home on Protonix and Macrodantin for seven days for UTI, which we just found many bacteria. LABORATORY DATA: On immunology, his IgG is 1262.8, that is normal. He has 143 sodium, potassium 3.9, BUN 8, creatinine 1.2, GFR is greater than 60, sugar is 95, calcium is 9.3. Total bili came down to 0.7. AST came down to 59, ALT came down to 106, alkaline phosphatase 57, total protein 6.9, lipase is 132. INR is 1.16. White count is 3.9, hemoglobin 12.8, hematocrit 38.2, platelets are 175. ASSESSMENT AND PLAN: He will be discharged today. He was here for abdominal pain, severe; increased liver enzymes; urinary tract infection. He was on observation. Sam Kellogg DO
== END 2017-12-13 11:02 | disposition home or self-care (01) ==
LOC: ED 20:16 → ERH 23:50 → 5RSO 12-12 01:36
PROVIDERS: ADMIT Family Medicine; ATTEND Family Medicine
DX: K52.9 Noninfective gastroenteritis and colitis, unspecified (principal); N39.0 Urinary tract infection, site not specified; R40.2412 Glasgow coma scale score 13-15, at arrival to emergency department
CPT/HCPCS: 36415; 71045; 74177; 76705; 80053; 81001; 82784; 83690; 83735; 84100; 85025; 85027; 85610; 85730; 86039; 86255; 86376; 86705; 86706; 86708; 86709; 86803; 86850; 86900; 87340; 87350; 96372; 96374; 96375; 96376; 99285; C9113; G0378; J1170; J1650; J2270; J2405; J7040; J7120; Q9967